=== PATIENT | male | born 1960 | race Caucasian/White ===

== ENCOUNTER 2018-12-11 08:31 | Emergency (ER) | payer OTHER ==
[~2018-12-11] VITALS: Ht 180.3 cm; Wt 99.8 kg
[2018-12-11] MEDS ORDERED: BYSTOLIC10 MG (08:44)
== END 2018-12-11 09:48 | disposition home or self-care (01) ==
LOC: ER 08:31
DX: T63.481A Toxic effect of venom of other arthropod, accidental (unintentional), initial encounter (principal); Y92.832 Beach as the place of occurrence of the external cause